=== PATIENT | female | born 2000 | race Caucasian/White ===

== ENCOUNTER 2022-04-12 22:23 | Emergency (ER) | payer BC, SELFPAY ==
--- NOTE | ~2022-04-12 | XR_ITS ---
EXAMINATION: XR chest 1V portable INDICATION: Flulike symptoms TECHNIQUE: Portable AP chest at 0128 hours COMPARISON: None available FINDINGS: The lungs are free of acute opacities. No pleural effusion or pneumothorax. The cardiomedia stinal silhouette is normal. There are 25 degrees of thoracic dextroscoliosis. IMPRESSION: 1. No acute cardiopulmonary abnormality. Reviewed, dictated and finalized at location [facility]. [facility]
[2022-04-12 22:28] VITALS: BP 135/74; PULSE 113; RESP 14; TEMP 38.3; O2SAT 100
--- NOTE | 2022-04-13 01:12 | ECG_ITS ---
Rate 105 GA 137 QRSd 93 QT 322 QTc 426 --[place]-- P 74 QRS 81 T 43 SINUS TACHYCARDIA POSSIBLE RIGHT ATRIAL ENLARGEMENT [0.25mV P-WAVE] INCOMPLETE RIGHT BUNDLE BRANCH BLOCK [90+ ms QRS DURATION, TERMINAL R IN V1/V2, 40+ ms S IN I/aVL/V4/V5/V6] ABNORMAL RHYTHM ECG NO PREVIOUS ECG AVAILABLE FOR COMPARISON Electronically Signed On 04-14-2022 17:11:43 [employer] by Azar MONROY
[2022-04-13] MEDS: ACETAMINOPHEN 500 MG TABLET 1000 MG PO (01:25)
--- NOTE | 2022-04-13 01:25 | ED.GENADULT ---
HPI - General Adult General Chief complaint: Upper Respiratory Infection Stated complaint: flu symptoms Time Seen by Provider: 04/13/22 01:11 History of Present Illness HPI narrative: This is a 21-year-old female presenting ED with flu-like symptoms. Patient has been having symptoms for 3 days. They include nausea and vomiting, headache, body aches, cough and decreased oral intake. She denies diarrhea, she denies chest pain, difficulty breathing, abdominal pain or urinary symptoms. She is not vaccinated against flu or COVID. Related Data Allergies Allergy/AdvReac Type Severity Reaction Status Date / Time No Known Allergies Allergy Unverified 07/19/17 12:31 Review of Systems Review of Systems: CONSTITUTIONAL: Denies night sweats. EYES: No eye pain ENT: Denies rhinorrhea CARDIOVASCULAR: Denies palpitations RESPIRATORY: Denies hemoptysis GASTROINTESTINAL: Denies hematemesis GENITOURINARY: Denies hematuria. SKIN: Denies rash MUSCULOSKELETAL: Denies myalgia. NEUROLOGIC: Denies weakness. PSYCHIATRIC: Denies delusions [facility] Past Medical History Medical History (Updated 04/13/22 @ 02:30 by Brian Alexander MD) Healthy female Social History Social History (Updated 04/13/22 @ 01:26 by Brian Alexander MD) Social History: patient drinks alcohol occasionally, uses marijuana daily Exam Narrative: APPEARANCE: No apparent distress. patient is well-appearing she is pleasant/polite during the interview Head: atraumatic. EYES: EOMI, NOSE: Atraumatic NECK: Trachea midline RESPIRATORY: No increased rate of breathing, clear to auscultation bilaterally CARDIOVASCULAR: RRR, no peripheral edema ABDOMINAL: nontender no guarding or rebound MUSCULOSKELETAl: No obvious deformities NEURO: Alert. Moving 4/4 extremities SKIN:: Warm, dry. Normal color PSYCHIATRIC: Normal affect Course Vital Signs Vital signs: Vital Signs Temperature 100.9 F H 04/12/22 22:28 Pulse Rate 113 H 04/12/22 22:28 Respiratory Rate 14 04/12/22 22:28 Blood Pressure 135/74 04/12/22 22:28 Pulse Oximetry 100 04/12/22 22:28 Oxygen Delivery Room Air 04/12/22 22:28 Temperature 100.9 F H 04/12/22 22:28 Pulse Rate 104 H 04/13/22 02:26 Respiratory Rate 18 04/13/22 02:26 Blood Pressure 121/80 04/13/22 02:26 Pulse Oximetry 98 04/13/22 02:26 Oxygen Delivery Room Air 04/13/22 02:18 Medical Decision Making MDM Narrative Medical decision making narrative: This is a well-appearing 21-year-old female presenting with flu-like symptoms. Viral swabs been ordered. She has been given Tylenol. Urine preg was negative. EKG interpretation: Rhythm [sinus], Rate 105, [place] -[normal], [place] -[normal], QRS [narrow], QTC [normal], T waves -[negative for concerning inversions], ST Segments - [Negative for concerning elevations] Final interpretations: Sinus tachycardia My interpretation of the chest x-ray did not reveal any acute cardiopulmonary process. Official read will occur in the AM. Patient was positive for flu. She is outside the window for Tamiflu. Upon re-evaluation patient's vital signs are stable. She is well-appearing. She is tolerating p.o.. She was discharged home with symptomatic treatment. Vital Signs Vital Signs: Vital Signs Temperature 100.9 F H 04/12/22 22:28 Pulse Rate 113 H 04/12/22 22:28 Respiratory Rate 14 04/12/22 22:28 Blood Pressure 135/74 04/12/22 22:28 Pulse Oximetry 100 04/12/22 22:28 Oxygen Delivery Room Air 04/12/22 22:28 Temperature 100.9 F H 04/12/22 22:28 Pulse Rate 104 H 04/13/22 02:26 Respiratory Rate 18 04/13/22 02:26 Blood Pressure 121/80 04/13/22 02:26 Pulse Oximetry 98 04/13/22 02:26 Oxygen Delivery Room Air 04/13/22 02:18 Lab Data Labs: Lab Results 04/13/22 Range/Units 01:37 Influenza A (RT-PCR) Positive (Negative) Influenza B (RT-PCR) Negative (Negative) RSV (RT-PCR) Negative (Negative) SA
[2022-04-13 02:19] LABS: Influenza A QL RT-PCR Positive (Negative); Influenza B QL RT-PCR Negative (Negative); RSV RNA, RT-PCR Negative (Negative); SARS-CoV-2 RNA PCR Negative
[2022-04-13] MEDS: IBUPROFEN 400 MG TABLET 800 MG PO (02:25)
[2022-04-13 02:26] VITALS: BP 121/80; PULSE 104; RESP 18; O2SAT 98
== END 2022-04-13 02:45 | disposition home or self-care (01) ==
PROVIDERS: Physician Assistant; Emergency Provider Emergency Medicine; PCP Pediatrics
DX: J10.1 Influenza due to other identified influenza virus with other respiratory manifestations (principal); Z20.822 Contact with and (suspected) exposure to COVID-19; Z28.310 Unvaccinated for COVID-19
CPT/HCPCS: 71045; 81025; 87637; 93005; 99283; A9270